=== PATIENT | male | born 1975 | race Caucasian/White ===

== ENCOUNTER 2018-07-27 02:17 | Emergency (ER) | payer BC ==
[~2018-07-27] VITALS: Ht 177.8 cm; Wt 79.4 kg
[2018-07-27 02:30] VITALS: BP 139/86
--- NOTE | 2018-07-27 02:30 | NUR ---
ER Nurse Note: Pt came from home c/o sore throat since 07/23. Pt stated he has difficulty swallowing. Pt stated he took doxycycline but no relief. Pt states pain 07/26 and states "it may be strep throat because I had it before". Pt a&ox4, VSS, no signs of distress. No fever, no shortness of breath. Will continue to montior.
[2018-07-27] MEDS ORDERED: ZITHROMAX250 MG ORAL (02:45)
--- NOTE | 2018-07-27 02:45 | Emergency Room Report ---
History of Present Illness General Chief Complaint: Sore Throat Source: Patient Present Illness [facility] This is a 42-year-old male with no past medical history. He presents with chief complaint of strep throat. Onset last 4 days. Subjective fever. Also with coughing congestion. The last 2 days he been taking doxycycline that he had left over. No relief. Worse with swallowing. No drooling. No fever chills. Pain is 8 out of 10. 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+ Review of Systems Eye: Denies: eye pain, blurred vision ENT: Reports: throat pain; Denies: ear pain, nose congestion, throat swelling Respiratory: Denies: cough, shortness of breath Cardiovascular: Denies: chest pain, palpitations Gastrointestinal: Denies: abdominal pain, diarrhea, nausea, vomiting Musculoskeletal: Denies: back pain, joint pain Skin: Denies: rash Neurological: Denies: headache, numbness Endocrine: Denies: increased thirst, increased urine Hematologic/Lymphatic: Denies: easy bruising All Other Systems: negative except mentioned in HPI Physical Exam Vital Signs Date Time Temp Pulse Resp B/P (MAP) Pulse Ox O2 Delivery O2 Flow Rate FiO2 07/27/18 02:19 98.2 108 18 96 Room Air vitals normal Sp02 EP Interpretation: reviewed, normal General Appearance: well appearing, no apparent distress, alert Head: normocephalic, atraumatic Eyes: bilateral eye PERRL, bilateral eye EOMI ENT: hearing grossly normal, pharyngeal erythema Neck: full range of motion, supple, no meningismus Respiratory: chest non-tender, lungs clear, normal breath sounds Cardiovascular #1: regular rate, rhythm, no murmur Gastrointestinal: normal bowel sounds, non tender, no mass, no organomegaly, no bruit, non-distended Musculoskeletal: back normal, gait/station normal, normal range of motion Psychiatric: mood/affect normal Skin: warm/dry Medical Decision Making Diagnostic Impression: Primary Impression: Pharyngitis, acute Qualified Codes: J02.9 - Acute pharyngitis, unspecified ER Course Patient presents with acute pharyngitis. Most likely viral in nature. Since he already took to have days of antibiotics, will finish the course. No evidence of peritonsillar abscess, retropharyngeal abscess or Godwin angina. We 'll discharge home. Last Vital Signs Date Time Temp Pulse Resp B/P (MAP) Pulse Ox O2 Delivery O2 Flow Rate FiO2 07/27/18 02:19 98.2 108 18 96 Room Air Status: unchanged Disposition: HOME, SELF-CARE Condition: Stable Scripts Azithromycin* (ZITHROMAX*) 250 Mg Tablet 250 MG ORAL DAILY, #6 TAB 0 Refills Take two tables once daily for 1 day, then one tablet once daily for 4 days. Prov: Chance Rojas MD 07/27/18 Referrals: NOT CHOSEN IPA/,REFERRING (PCP) Additional Instructions: Increase fluids. Salt water gargle. Follow-up with your doctor in 7 days. Return if worse. Chance Rojas MD July 27, 2018 02:45
[2018-07-27 02:50] VITALS: BP 139/86
--- NOTE | 2018-07-27 02:50 | NUR ---
ER Nurse Note: Pt seen, treated, medically cleared for discharge by ERMD. Discharge instructions and prescriptions given with repeat verbazliaion by pt. Instructed pt to follow up with primary care provider within one week. Pt a&ox4, VSS, no signs of distress. ID band removed. Pt left with all belongings with steady gait via own transportation.
== END 2018-07-27 02:50 | disposition home or self-care (01) ==
LOC: EMR 02:42
DX: J02.9 Acute pharyngitis, unspecified (principal); B20 Human immunodeficiency virus [HIV] disease
CPT/HCPCS: 99282

== ENCOUNTER 2020-02-12 02:44 | Emergency (ER) | payer BC ==
[~2020-02-12] VITALS: Ht 177.8 cm; Wt 80.3 kg
[~2020-02-12 02:44] MED LIST: ZITHROMAX250 MG ORAL
[2020-02-12] MEDS ORDERED: TRIUMEQ 600-501 EACH PO (02:58)
[2020-02-12 03:05] VITALS: BP 142/99
--- NOTE | 2020-02-12 03:14 | Emergency Room Report ---
History of Present Illness General Chief Complaint: Male Urogenital Problems Source: Patient Present Illness HPI Is a 44-year-old male with a history of STDs in the past. He presents with chief complaint of penile discharge. Onset for last 2 to 3 days. Greenish in color. He has dysuria. No joint pain. He is sexually active with multiple partners. Unprotected sex. Nothing made it better. Urinating made it worse. Similar symptom in the past. 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+ Review of Systems Eye: Denies: eye pain, blurred vision ENT: Denies: ear pain, nose congestion, throat swelling Respiratory: Denies: cough, shortness of breath Cardiovascular: Denies: chest pain, palpitations Gastrointestinal: Denies: abdominal pain, diarrhea, nausea, vomiting Genitourinary: Reports: discharge, dysuria Musculoskeletal: Denies: back pain, joint pain Skin: Denies: rash Neurological: Denies: headache, numbness Endocrine: Denies: increased thirst, increased urine Hematologic/Lymphatic: Denies: easy bruising All Other Systems: negative except mentioned in HPI Physical Exam Vital Signs Date Time Temp Pulse Resp B/P (MAP) Pulse Ox O2 Delivery O2 Flow Rate FiO2 02/12/20 02:55 98.4 96 16 142/99 (113) 96 Room Air Vitals with high blood pressure Sp02 EP Interpretation: reviewed, normal General Appearance: well appearing, no apparent distress, alert Head: normocephalic, atraumatic Eyes: bilateral eye PERRL, bilateral eye EOMI ENT: hearing grossly normal, normal pharynx Neck: full range of motion, supple, no meningismus Respiratory: chest non-tender, lungs clear, normal breath sounds Cardiovascular #1: regular rate, rhythm, no murmur Gastrointestinal: normal bowel sounds, non tender, no mass, no organomegaly, no bruit, non-distended Genitourinary: other - Patient has yellowish/greenish penile discharge Musculoskeletal: back normal, normal range of motion, gait/station normal Psychiatric: mood/affect normal Medical Decision Making Diagnostic Impression: Primary Impression: Urethritis ER Course This patient presents with acute urethritis. Most likely gonorrhea. Rocephin and azithromycin given. Will discharge home. Last Vital Signs Date Time Temp Pulse Resp B/P (MAP) Pulse Ox O2 Delivery O2 Flow Rate FiO2 02/12/20 03:05 98.4 88 16 142/99 96 Room Air Status: improved Disposition: HOME, SELF-CARE Condition: Stable Patient Instructions: Urethritis, Adult Additional Instructions: Have your partners treated. Recommend outpatient testing for HIV, hepatitis, syphilis and other STDs. Follow-up with your doctor in a week as needed. Return if symptoms worsen. Chance Rojas MD Feb 12, 2020 03:14
[2020-02-12] MEDS ORDERED: Azithromycin 250mg tab ORAL ONE (03:15)
[2020-02-12] MEDS ORDERED: Lidocaine 1% MPF 10mg/ml 5ml INJ ONE (03:15)
[2020-02-12 03:27] VITALS: BP 142/99
== END 2020-02-12 03:28 | disposition home or self-care (01) ==
LOC: EMR 03:20
DX: N34.2 Other urethritis (principal)
CPT/HCPCS: 96372; 99283; J0696